=== PATIENT | female | born 1925 | race Asian ===

== ENCOUNTER 2017-05-04 13:56 | Inpatient (IN) | payer MEDICARE ==
[~2017-05-04] VITALS: Ht 157.5 cm; Wt 54.4 kg
[2017-05-04 14:09] LABS: BASOPHILS % (AUTO) 0.3 % (0.0-5.0); EOSINOPHILS % (AUTO) 0.2 % (0.0-8.0); HEMATOCRIT 37.7 % (36-48); MEAN CORPUSCULAR HEMOGLOBIN 30.9 pg (27.0-33.0); MEAN CORPUSCULAR VOLUME 88.2 fL (79-99); MONOCYTES % (AUTO) 7.7 % (3.0-13.0); NEUTROPHILS % (AUTO) 70.8 % (40.0-77.0); PLATELET COUNT (AUTO) 372 K/uL (130-400); RED BLOOD CELL COUNT(AUTO) 4.27 MIL/uL (4.00-5.50); RED CELL DISTRIBUTION WIDTH 13.6 % (11.0-15.5); WHITE BLOOD COUNT (AUTO) 22.1 K/uL (4.8-10.8)
[2017-05-04] MEDS ORDERED: IOPAMIDOL-370 100 ML VIAL IV ONE (14:10)
[2017-05-04 14:23] LABS: CREATININE 1.1 mg/dL (0.5-1.5); POTASSIUM 4.2 mmol/L (3.5-5.1)
[2017-05-04 14:27] LABS: ALBUMIN 2.9 g/dL (3.5-5.0); BILIRUBIN,TOTAL 1.4 mg/dL (0.2-1.0); MAGNESIUM 1.6 mg/dL (1.80-2.40); TOTAL PROTEIN, SERUM 7.2 g/dL (6.0-8.3)
[2017-05-04] MEDS ORDERED: FENTANYL CITRATE PF 50 MCG/1 ML 2ML VIAL ONE (14:48)
[2017-05-04] MEDS ORDERED: LACTATED RINGERS 1000ML 1,000 ML IV ONE (14:48)
[2017-05-04] MEDS ORDERED: TETANUS/DIPHTHERIA TOXOID [ADULT] 0.5 ML VIAL IM ONE (14:49)
[2017-05-04 16:31] LABS: APPEARANCE,URINE Cloudy (CLEAR); BILIRUBIN,URINE Negative (NEGATIVE); COLOR,URINE Yellow (YELLOW); GLUCOSE, URINE (UA) 250 mg/dL (NEGATIVE); KETONES,URINE 15 mg/dL (NEGATIVE); LEUKOCYTE ESTERASE ,URINE Large (NEGATIVE); NITRATE,URINE Negative (NEGATIVE); OCCULT BLOOD,URINE Trace (NEGATIVE); PH,URINE 8.5 (5.0-8.0); PROTEIN,URINE POS 1+ (NEGATIVE)
[2017-05-04 16:41] LABS: BACTERIA,URINE Rare /HPF (None Seen); RBC,URINE 0-1 /HPF (0-1)
[2017-05-04] MEDS ORDERED: LEVOFLOXACIN 750 MG/D5W 150 ML 150 ML ONE (17:18)
[2017-05-05] MEDS ORDERED: LEVOFLOXACIN 500 MG/D5W 100 ML 100 ML IV SCH
[2017-05-05 00:20] VITALS: BP 130/66
[2017-05-05 03:34] LABS: HEMATOCRIT 33.5 % (36-48); MEAN CORPUSCULAR HEMOGLOBIN 31.8 pg (27.0-33.0); MEAN CORPUSCULAR HGB CONC 36.9 g/dL (32.0-36.0); MEAN CORPUSCULAR VOLUME 86.2 fL (79-99); PLATELET COUNT (AUTO) 291 K/uL (130-400); RED BLOOD CELL COUNT(AUTO) 3.89 MIL/uL (4.00-5.50); RED CELL DISTRIBUTION WIDTH 13.7 % (11.0-15.5); WHITE BLOOD COUNT (AUTO) 17.1 K/uL (4.8-10.8)
[2017-05-05 03:42] LABS: CREATININE 0.9 mg/dL (0.5-1.5); POTASSIUM 4.3 mmol/L (3.5-5.1)
[2017-05-05 04:00] VITALS: BP 134/66
[2017-05-05] MEDS: INSULIN HUMULIN R 100 UNIT/ML 3ML SQ SCH ×4 (06:28→20:55)
[2017-05-05 07:00] VITALS: BP 152/74
[2017-05-05] MEDS ORDERED: LACTULOSE 20 GM/30 ML UDCUP PO PRN (09:00)
[2017-05-05] MEDS ORDERED: MAG HYDROX/AL HYDROX/SIMETH ES 30 ML SUSP UDCUP PO PRN (09:00)
[2017-05-05] MEDS ORDERED: ONDANSETRON HCL 4 MG/2 ML VIAL IV PRN ×2 (09:00)
[2017-05-05] MEDS ORDERED: GUAIFENESIN-DM 200/20 MG 10 ML PO PRN (09:00)
[2017-05-05] MEDS ORDERED: POTASSIUM CHLORIDE 20MEQ/100ML 100 ML IV PRN ×2 (09:00)
[2017-05-05] MEDS ORDERED: ACETAMINOPHEN 325 MG TAB PO PRN ×4 (09:00)
[2017-05-05] MEDS ORDERED: HYDRALAZINE HCL 20 MG/ML VIAL IV PRN ×2 (09:00)
[2017-05-05] MEDS ORDERED: POTASSIUM CHLORIDE 20 MEQ ERTAB PO PRN (09:00)
[2017-05-05] MEDS ORDERED: LIDOCAINE HCL-MPF 1% 2ML VIAL IVP PRN ×2 (09:00)
[2017-05-05] MEDS ORDERED: NITROGLYCERIN 0.4 MG SL TAB SL PRN (09:00)
[2017-05-05] MEDS ORDERED: POTASSIUM CHLORIDE 10% ELIXIR 20 MEQ/15 ML UDCUP PO PRN ×2 (09:00)
[2017-05-05] MEDS: FAMOTIDINE 20MG TAB 20 MG TAB PO SCH ×2 (10:28→20:50)
[2017-05-05] MEDS ORDERED: GADOBENATE DIMEGLUMINE 10 ML IV ONE (10:54)
[2017-05-05 11:00] VITALS: BP 148/54
[2017-05-05] MEDS ORDERED: DEXL60CA3 PO (14:47)
[2017-05-05] MEDS ORDERED: LEVO75 PO (14:47)
[2017-05-05] MEDS ORDERED: GABA-531 PO (14:47)
[2017-05-05] MEDS ORDERED: SIMV20TA6 PO (14:52)
[2017-05-05] MEDS ORDERED: LISI10TA7 PO (14:52)
[2017-05-05] MEDS ORDERED: AMLO5TAB2 PO (14:52)
[2017-05-05 16:00] VITALS: BP 146/77
[2017-05-05] MEDS: LEVOFLOXACIN 500 MG/D5W 100 ML 100 ML IV SCH (16:16)
[2017-05-05 20:00] VITALS: BP 138/70
[2017-05-05] MEDS ORDERED: INSU100I21 SQ (23:11)
[2017-05-06] VITALS (7 sets, daily range): BP systolic 121–158; BP diastolic 61–84
[2017-05-06 04:07] LABS: HEMATOCRIT 33.9 % (36-48); MEAN CORPUSCULAR HEMOGLOBIN 31.6 pg (27.0-33.0); MEAN CORPUSCULAR HGB CONC 36.8 g/dL (32.0-36.0); MEAN CORPUSCULAR VOLUME 85.9 fL (79-99); NUCLEATED RED BLOOD CELLS 0.1 % (0.0-0.19); PLATELET COUNT (AUTO) 319 K/uL (130-400); RED BLOOD CELL COUNT(AUTO) 3.94 MIL/uL (4.00-5.50); RED CELL DISTRIBUTION WIDTH 13.5 % (11.0-15.5); WHITE BLOOD COUNT (AUTO) 14.7 K/uL (4.8-10.8)
[2017-05-06 04:20] LABS: CREATININE 0.9 mg/dL (0.5-1.5); POTASSIUM 3.3 mmol/L (3.5-5.1)
[2017-05-06] MEDS: INSULIN HUMULIN R 100 UNIT/ML 3ML SQ SCH ×4 (06:37→21:30)
[2017-05-06] MEDS ORDERED: MORPHINE SULFATE 2 MG/ML 1ML SYG IVP PRN (08:45)
[2017-05-06] MEDS ORDERED: KETOROLAC TROMETHAMINE 15MG/ML IV PRN (08:45)
[2017-05-06] MEDS ORDERED: MORPHINE SULFATE 4 MG/1ML SYG IVP PRN (08:45)
[2017-05-06] MEDS ORDERED: ACETAMINOPHEN-CODEINE 300/30MG TAB PO PRN (08:45)
[2017-05-06] MEDS: LISINOPRIL 10 MG TABLET PO SCH (10:32)
[2017-05-06] MEDS: FAMOTIDINE 20MG TAB 20 MG TAB PO SCH ×2 (10:32→21:29)
[2017-05-06] MEDS: AMLODIPINE BESYLATE 5 MG TAB PO SCH (10:32)
[2017-05-06] MEDS: GABAPENTIN 300 MG CAPSULE PO SCH ×3 (10:32→21:29)
[2017-05-06] MEDS: DEXLANSOPRAZOLE 60 MG PO SCH (10:34)
[2017-05-06] MEDS: POTASSIUM CHLORIDE 20 MEQ ERTAB PO PRN ×3 (13:22→22:17)
[2017-05-06] MEDS: LEVOFLOXACIN 500 MG/D5W 100 ML 100 ML IV SCH (17:15)
[2017-05-06] MEDS ORDERED: OLOP2.5D6 OP (18:41)
[2017-05-06] MEDS: ATORVASTATIN CALCIUM 10 MG TABLET PO SCH (21:29)
[2017-05-06] MEDS: INSULIN GLARGINE 100 UNITS/ML 10 ML VIAL SQ SCH (21:31)
[2017-05-07 03:00] VITALS: BP 117/59
[2017-05-07 04:07] LABS: HEMATOCRIT 32.7 % (36-48); MEAN CORPUSCULAR HEMOGLOBIN 31.7 pg (27.0-33.0); MEAN CORPUSCULAR HGB CONC 37.1 g/dL (32.0-36.0); MEAN CORPUSCULAR VOLUME 85.4 fL (79-99); NUCLEATED RED BLOOD CELLS 0.1 % (0.0-0.19); PLATELET COUNT (AUTO) 324 K/uL (130-400); RED BLOOD CELL COUNT(AUTO) 3.83 MIL/uL (4.00-5.50); WHITE BLOOD COUNT (AUTO) 13.3 K/uL (4.8-10.8)
[2017-05-07 04:15] LABS: POTASSIUM 4.3 mmol/L (3.5-5.1)
[2017-05-07] MEDS: INSULIN HUMULIN R 100 UNIT/ML 3ML SQ SCH ×4 (05:57→21:03)
[2017-05-07] MEDS: LEVOTHYROXINE 75 MCG TABLET PO SCH (06:18)
[2017-05-07 07:48] VITALS: BP 118/63
[2017-05-07] MEDS: LISINOPRIL 10 MG TABLET PO SCH (08:48)
[2017-05-07] MEDS: AMLODIPINE BESYLATE 5 MG TAB PO SCH (08:48)
[2017-05-07] MEDS: FAMOTIDINE 20MG TAB 20 MG TAB PO SCH ×2 (08:48→21:02)
[2017-05-07] MEDS: GABAPENTIN 300 MG CAPSULE PO SCH ×3 (08:48→21:02)
[2017-05-07] MEDS: DEXLANSOPRAZOLE 60 MG PO SCH (08:49)
[2017-05-07 12:01] VITALS: BP 119/59
[2017-05-07] MEDS: LEVOFLOXACIN 500 MG/D5W 100 ML 100 ML IV SCH (15:43)
[2017-05-07 15:52] VITALS: BP 138/70
[2017-05-07 19:00] VITALS: BP 114/68
[2017-05-07] MEDS: ATORVASTATIN CALCIUM 10 MG TABLET PO SCH (21:02)
[2017-05-07] MEDS: INSULIN GLARGINE 100 UNITS/ML 10 ML VIAL SQ SCH (21:04)
[2017-05-07 23:00] VITALS: BP 111/54
[2017-05-08 03:00] VITALS: BP 111/59
[2017-05-08] MEDS: LEVOTHYROXINE 75 MCG TABLET PO SCH (06:06)
[2017-05-08] MEDS: INSULIN HUMULIN R 100 UNIT/ML 3ML SQ SCH ×4 (06:18→20:22)
[2017-05-08 07:58] VITALS: BP 125/58
[2017-05-08] MEDS ORDERED: MEROPENEM 500MG+NS 50ML 50 ML IV SCH (08:15)
[2017-05-08] MEDS: DEXLANSOPRAZOLE 60 MG PO SCH (09:00)
[2017-05-08] MEDS: GABAPENTIN 300 MG CAPSULE PO SCH ×3 (09:06→20:21)
[2017-05-08] MEDS: MEROPENEM 500 MG VIAL IVP SCH ×2 (09:06→17:45)
[2017-05-08] MEDS: AMLODIPINE BESYLATE 5 MG TAB PO SCH (09:06)
[2017-05-08] MEDS: FAMOTIDINE 20MG TAB 20 MG TAB PO SCH ×2 (09:06→20:21)
[2017-05-08] MEDS: POLYETHYLENE GLYCOL 3350 17 GM POWD.PACK PO SCH ×2 (09:07→09:09)
[2017-05-08] MEDS: LISINOPRIL 10 MG TABLET PO SCH (09:07)
[2017-05-08 11:37] VITALS: BP 107/44
[2017-05-08 15:54] VITALS: BP 148/56
[2017-05-08] MEDS: ACETAMINOPHEN-CODEINE 300/30MG TAB PO PRN (17:53)
[2017-05-08 19:00] VITALS: BP 116/61
[2017-05-08] MEDS: ATORVASTATIN CALCIUM 10 MG TABLET PO SCH (20:21)
[2017-05-08] MEDS: INSULIN GLARGINE 100 UNITS/ML 10 ML VIAL SQ SCH (20:31)
[2017-05-08 23:00] VITALS: BP 117/95
[2017-05-09] MEDS: MEROPENEM 500 MG VIAL IVP SCH ×3 (00:07→16:41)
[2017-05-09 03:00] VITALS: BP 122/55
[2017-05-09] MEDS: LEVOTHYROXINE 75 MCG TABLET PO SCH (05:38)
[2017-05-09 05:58] LABS: MEAN CORPUSCULAR HEMOGLOBIN 31.2 pg (27.0-33.0); MEAN CORPUSCULAR HGB CONC 36.1 g/dL (32.0-36.0); MEAN CORPUSCULAR VOLUME 86.2 fL (79-99); PLATELET COUNT (AUTO) 388 K/uL (130-400); RED BLOOD CELL COUNT(AUTO) 4.06 MIL/uL (4.00-5.50); RED CELL DISTRIBUTION WIDTH 14.2 % (11.0-15.5); WHITE BLOOD COUNT (AUTO) 13.4 K/uL (4.8-10.8)
[2017-05-09 06:08] LABS: CREATININE 1.1 mg/dL (0.5-1.5); INR 0.95 (0.85-1.15); PARTIAL THROMBOPLASTIN TIME 28.9 SEC (26.3-35.5); POTASSIUM 3.8 mmol/L (3.5-5.1)
[2017-05-09] MEDS: INSULIN HUMULIN R 100 UNIT/ML 3ML SQ SCH ×4 (06:32→21:00)
[2017-05-09 08:00] VITALS: BP 122/66
[2017-05-09] MEDS: DEXLANSOPRAZOLE 60 MG PO SCH (09:00)
[2017-05-09] MEDS: POLYETHYLENE GLYCOL 3350 17 GM POWD.PACK PO SCH (10:03)
[2017-05-09] MEDS: AMLODIPINE BESYLATE 5 MG TAB PO SCH (10:03)
[2017-05-09] MEDS: FAMOTIDINE 20MG TAB 20 MG TAB PO SCH ×2 (10:04→21:15)
[2017-05-09] MEDS: GABAPENTIN 300 MG CAPSULE PO SCH ×3 (10:04→21:15)
[2017-05-09] MEDS: LISINOPRIL 10 MG TABLET PO SCH (10:04)
[2017-05-09 11:00] VITALS: BP 134/73
[2017-05-09 16:00] VITALS: BP 146/78
[2017-05-09 19:25] VITALS: BP 123/57
[2017-05-09] MEDS: INSULIN GLARGINE 100 UNITS/ML 10 ML VIAL SQ SCH (21:13)
[2017-05-09] MEDS: ATORVASTATIN CALCIUM 10 MG TABLET PO SCH (21:15)
[2017-05-09 23:30] VITALS: BP 136/65
[2017-05-10] VITALS (23 sets, daily range): BP systolic 102–135; BP diastolic 37–72
[2017-05-10] MEDS: MEROPENEM 500 MG VIAL IVP SCH ×3 (01:10→18:57)
[2017-05-10 04:44] LABS: HEMATOCRIT 36.5 % (36-48); MEAN CORPUSCULAR HGB CONC 35.9 g/dL (32.0-36.0); MEAN CORPUSCULAR VOLUME 86.1 fL (79-99); PLATELET COUNT (AUTO) 440 K/uL (130-400); RED BLOOD CELL COUNT(AUTO) 4.23 MIL/uL (4.00-5.50); RED CELL DISTRIBUTION WIDTH 14.1 % (11.0-15.5); WHITE BLOOD COUNT (AUTO) 12.1 K/uL (4.8-10.8)
[2017-05-10 05:00] LABS: CREATININE 1.1 mg/dL (0.5-1.5); POTASSIUM 3.9 mmol/L (3.5-5.1)
[2017-05-10] MEDS: LEVOTHYROXINE 75 MCG TABLET PO SCH (06:30)
[2017-05-10] MEDS: INSULIN HUMULIN R 100 UNIT/ML 3ML SQ SCH ×4 (07:30→21:47)
[2017-05-10] MEDS ORDERED: SODIUM CHLORIDE 0.9% 1000ML 1,000 ML IV SCH (07:54)
[2017-05-10] MEDS: BUPIVACAINE/EPI/PF 0.25% 30ML VIAL IJ SCH ×2 (08:45→11:02)
[2017-05-10] MEDS ORDERED: DEXAMETHASONE SOD PHOSPHATE 10MG/ML 1ML VIAL ONE (08:57)
[2017-05-10] MEDS ORDERED: LIDOCAINE PF 2% 5ML ABBOJECT ONE (08:57)
[2017-05-10] MEDS ORDERED: ONDANSETRON HCL 4 MG/2 ML VIAL ONE (08:57)
[2017-05-10] MEDS ORDERED: SUCCINYLCHOLINE 200MG/10ML SYR ONE (08:57)
[2017-05-10] MEDS ORDERED: NEOSTIGMINE 5MG/5ML SYR IV ONE (08:57)
[2017-05-10] MEDS ORDERED: FENTANYL CITRATE PF 50 MCG/1 ML 2ML VIAL ONE ×2 (08:58→09:50)
[2017-05-10] MEDS ORDERED: PROPOFOL 10 MG/ML 20ML VIAL IV ONE (08:58)
[2017-05-10] MEDS ORDERED: MIDAZOLAM HCL 1 MG/ML 2ML VIAL ONE (08:58)
[2017-05-10] MEDS: FAMOTIDINE 20MG TAB 20 MG TAB PO SCH ×2 (09:00→20:34)
[2017-05-10] MEDS: GABAPENTIN 300 MG CAPSULE PO SCH ×3 (09:00→20:34)
[2017-05-10] MEDS: DEXLANSOPRAZOLE 60 MG PO SCH (09:00)
[2017-05-10] MEDS: POLYETHYLENE GLYCOL 3350 17 GM POWD.PACK PO SCH (09:00)
[2017-05-10] MEDS ORDERED: BACITRACIN 50,000 UNIT VIAL ONE (09:02)
[2017-05-10] MEDS ORDERED: THROMBIN-JMI 20000 UNIT KIT TP ONE (09:03)
[2017-05-10] MEDS: LISINOPRIL 10 MG TABLET PO SCH (09:36)
[2017-05-10] MEDS: AMLODIPINE BESYLATE 5 MG TAB PO SCH (09:36)
[2017-05-10] MEDS ORDERED: NALOXONE HCL 0.4 MG/1 ML ML ONE (11:03)
[2017-05-10] MEDS ORDERED: IOPAMIDOL 10 ML VIAL ONE (11:20)
[2017-05-10] MEDS ORDERED: MEPERIDINE-PF 50 MG/ML SYG ONE (11:53)
[2017-05-10] MEDS: ATORVASTATIN CALCIUM 10 MG TABLET PO SCH (20:34)
[2017-05-10] MEDS: INSULIN GLARGINE 100 UNITS/ML 10 ML VIAL SQ SCH (21:43)
[2017-05-11] MEDS: ACETAMINOPHEN-CODEINE 300/30MG TAB PO PRN (01:28)
[2017-05-11] MEDS: MEROPENEM 500 MG VIAL IVP SCH ×3 (01:29→16:19)
[2017-05-11 03:20] VITALS: BP 135/59
[2017-05-11] MEDS: LEVOTHYROXINE 75 MCG TABLET PO SCH (06:33)
[2017-05-11] MEDS: INSULIN HUMULIN R 100 UNIT/ML 3ML SQ SCH ×3 (06:35→16:30)
[2017-05-11 07:30] VITALS: BP 135/66
[2017-05-11] MEDS: POLYETHYLENE GLYCOL 3350 17 GM POWD.PACK PO SCH (08:52)
[2017-05-11] MEDS: AMLODIPINE BESYLATE 5 MG TAB PO SCH (08:53)
[2017-05-11] MEDS: GABAPENTIN 300 MG CAPSULE PO SCH ×2 (08:53→14:34)
[2017-05-11] MEDS: FAMOTIDINE 20MG TAB 20 MG TAB PO SCH (08:53)
[2017-05-11] MEDS: LISINOPRIL 10 MG TABLET PO SCH (08:54)
[2017-05-11] MEDS: DEXLANSOPRAZOLE 60 MG PO SCH (09:00)
[2017-05-11 11:00] VITALS: BP 137/78
[2017-05-11 16:00] VITALS: BP 132/71
== END 2017-05-11 17:35 | DRG 478 ==
LOC: EDH 13:56 → EDHIP 17:35 → OBSVTOIN 17:35 → 3BH 21:46
PROVIDERS: ADMIT Internal Medicine; ATTEND Internal Medicine
PROC: 3E0234Z Introduction of Serum, Toxoid and Vaccine into Muscle, Percutaneous Approach (ICD-10-PCS; 2017-05-10)
PROC: 0P943ZX Drainage of Thoracic Vertebra, Percutaneous Approach, Diagnostic (ICD-10-PCS; principal; 2017-05-10 10:36)
DX: M48.56XA Collapsed vertebra, not elsewhere classified, lumbar region, initial encounter for fracture (principal); N39.0 Urinary tract infection, site not specified; J90 Pleural effusion, not elsewhere classified; E11.65 Type 2 diabetes mellitus with hyperglycemia; E11.42 Type 2 diabetes mellitus with diabetic polyneuropathy; W19.XXXA Unspecified fall, initial encounter; I10 Essential (primary) hypertension; E78.5 Hyperlipidemia, unspecified; Z16.12 Extended spectrum beta lactamase (ESBL) resistance; E03.9 Hypothyroidism, unspecified; E66.9 Obesity, unspecified; E87.6 Hypokalemia; D72.829 Elevated white blood cell count, unspecified; Z16.24 Resistance to multiple antibiotics; Z79.4 Long term (current) use of insulin; Z91.81 History of falling; Z90.49 Acquired absence of other specified parts of digestive tract; Y93.89 Activity, other specified; Y92.59 Other trade areas as the place of occurrence of the external cause; Y99.8 Other external cause status; Z68.21 Body mass index [BMI] 21.0-21.9, adult; Z88.0 Allergy status to penicillin; Z23 Encounter for immunization
CPT/HCPCS: 36415; 70450; 71260; 72125; 72157; 74177; 76000; 80048; 80053; 81001; 82550; 82948; 83605; 83735; 84484; 85025; 85027; 85610; 85651; 85730; 86141; 87040; 87070; 87076; 87088; 87186; 87205; 88304; 88311; 90714; A4218; A4606; A9577; J0330; J1100; J1815; J1885; J1956; J2001; J2175; J2185; J2250; J2310; J2405; J2704; J2710; J3010; J3490; J7030; J7120; Q9967